=== PATIENT | male | born 1950 | race African-American/Black ===

== ENCOUNTER → 2019-04-08 | Outpatient (CLI) | payer MEDICARE, OTHER ==
[~2019-04-08] MED LIST: AMLO-147 PO; ASPI81TA52 PO; ATOR-2 PO; BUSP10TA2 PO; CLOP75TA27 PO; DOCU100T PO; HYDR-4011 PO; MAGN400T27 PO; MEGE40TA PO; POLY15DR25 BOTH EYES; TAMS-14 PO; ZOLP10TA5 PO
--- NOTE | 2019-04-15 16:57 | RADRPT ---
Vent Rate: 70 bpm RR Interval: 856 msec MT Interval: 130 msec QRS Duration: 82 msec QT Interval: 455 msec QTC Interval: 492 msec P-R-T [place]: 70 - 74 - 62 degrees Sinus rhythm...normal P axis, V-rate 50- 99 Electronically Signed By: Sam Pereira
== END | disposition home or self-care (01) ==
LOC: LAB 12:29
PROVIDERS: ATTEND Internal Medicine
DX: Z01.818 Encounter for other preprocedural examination (principal); I10 Essential (primary) hypertension; I65.21 Occlusion and stenosis of right carotid artery; I67.2 Cerebral atherosclerosis; I11.9 Hypertensive heart disease without heart failure
CPT/HCPCS: 71045; 81003; 85025; 85610; 85730; 93005

== ENCOUNTER 2019-04-15 07:25 | Day surgery (SDC) | payer MEDICARE, OTHER ==
--- NOTE | 2019-04-14 22:29 | PREOPHP ---
DATE OF ADMISSION: 04/15/2019 HISTORY OF PRESENT ILLNESS: This 69-year-old gentleman is admitted for elective cataract surgery of the right eye. The patient has had decreased vision in the right eye for an extended period of time without prior history of eye disease or injury. The patient's systemic history is positive for diabe jeremy mellitus, asthma, systemic hypertension and heart disease. CURRENT MEDICATIONS: 1. Amlodipine. 2. Aspirin (discontinued 1 week prior to surgery). 3. Atorvastatin. 4. Clopidogrel. 5. Tamsulosin. 6. [place]. 7. Zolpidem. 8. Docusate. 9. Artificial Tears. ALLERGIES: THERE ARE NO KNOWN ALLERGIES. PHYSICAL EXAMINATION: The visual acuity is finger counting in the right eye and 20/100 in the left e ye. Slit lamp examination reveals a mature cataract in the right eye and an advanced nuclear sclerot ic cataract, associated with a posterior subcapsular cataract in the left eye. Applanation tonometry is 19 mmHg. Examination of the retina in the right eye is grossly normal. Left eye appears to have a normal appearing optic disk, macula and blood vessels. DIAGNOSIS: Mature cataract, right eye. PLAN: Cataract extraction with lens implant, right eye. The risks and alternatives to the surgery h ave been discussed with the patient as well as the hope for improvement of visual acuity leading to g reater ability to perform activities of daily living. The patient understands this and agrees to pro ceed with surgery. Dictated By: RADHA LONG/LAWANDA Conf#: [id number] DID#: [id number]
[~2019-04-15] VITALS: Ht 188 cm; Wt 65.3 kg
[2019-04-15] VITALS (11 sets, daily range): BP systolic 112–137; BP diastolic 73–89; PULSE 58–84; RESP 13–18; Ht 188 cm; Wt 65.3 kg
[2019-04-15] MEDS ORDERED: DICLOFENAC 0.1% 2.5 ML OPH OPER SCH (08:30)
[2019-04-15] MEDS ORDERED: MOXIFLOXACIN 0.5% 3 ML OPH OPER SCH (08:30)
[2019-04-15] MEDS ORDERED: CYCLOPENTOLATE/PHENYLEPH 2 ML OPH OPER SCH ×2 (08:30)
[2019-04-15] MEDS ORDERED: TROPICAMIDE 1% 15 ML OPH OPER SCH (08:30)
[2019-04-15] MEDS ORDERED: AMLO-147 PO (08:47)
[2019-04-15] MEDS ORDERED: ATOR-2 PO (08:48)
[2019-04-15] MEDS ORDERED: ASPI81TA52 PO (08:48)
[2019-04-15] MEDS ORDERED: CLOP75TA27 PO (08:49)
[2019-04-15] MEDS ORDERED: MEGE40TA PO (08:54)
[2019-04-15] MEDS ORDERED: ZOLP10TA5 PO (08:54)
[2019-04-15] MEDS ORDERED: HYDR-4011 PO (08:55)
[2019-04-15] MEDS ORDERED: TAMS-14 PO (08:55)
[2019-04-15] MEDS ORDERED: BUSP10TA2 PO (08:56)
[2019-04-15] MEDS ORDERED: DOCU100T PO (08:58)
[2019-04-15] MEDS ORDERED: MAGN400T27 PO (08:58)
--- NOTE | 2019-04-15 08:58 | PREAC ---
Date/Time of Note Date/Time of Note DATE: 04/15/19 TIME: 08:56 Anesthesia Eval and Record Evaluation Time Pre-Procedure Interview DATE: 04/15/19 TIME: 08:56 Age 69 Sex male NPO: 8 hrs Preoperative diagnosis Right eye cataract Planned procedure Cataract extraction with IOL implant Past Medical History Past Medical History: Includes Cardio: HTN, Dyslipidemia, CAD, PTCA/Stent Surgery & Anesthesia Issues No known issue Meds Anticoagulation: No Beta Jon within 24 hr: No Reason Beta Jon not given: Pt. not on B-Jon Reported Medications Polyvinyl Alcohol (Tears Again) 15 Ml Drops, 1 DRP BOTH EYES DAILY, BOTTLE 04/15/19 Docusate Sodium* (Dok*) 100 Mg Tablet, 100 MG PO BID, #60 CAP 04/15/19 Magnesium Oxide* (Mag-Oxide*) 400 Mg Tablet, 400 MG PO DAILY, TAB 04/15/19 Buspirone Hcl* (Buspirone Hcl*) 10 Mg Tab, 5 MG PO QHS, TAB 04/15/19 Tamsulosin Hcl* (Flomax*) 0.4 Mg Cap.er.24h, 0.4 MG PO DAILY, CAP 04/15/19 Hydrocodone/Acetaminophen ([place] 5-325 Tablet) 1 Each Tablet, 1 EACH PO TID PRN for PAIN, TAB 04/15/19 Zolpidem Tartrate* (Zolpidem Tartrate*) 10 Mg Tablet, 10 MG PO QHS PRN for INSOMNIA, #30 TAB 04/15/19 Megestrol Acetate* (Megace*) 40 Mg Tab, 40 MG PO BID, TAB 04/15/19 Clopidogrel Bisulfate (Clopidogrel) 75 Mg Tablet, 75 MG PO DAILY, #30 TAB 04/15/19 Atorvastatin* (Atorvastatin*) 80 Mg Tablet, 80 MG PO QHS, #30 TAB 04/15/19 Aspirin (Low Dose Aspirin) 81 Mg Tablet.dr, 81 MG PO DAILY, #30 TAB 04/15/19 Amlodipine Besylate* (Amlodipine Besylate*) 10 Mg Tablet, 10 MG PO DAILY, #30 TAB 04/15/19 Current Medications Diclofenac Sodium (Voltaren 0.1%) 1 drop Q5 MIN X 3 OPER Last administered on 04/15/19at 08:35; Admin Dose 1 DROP; Start 04/15/19 at 08:30; Stop 04/15/19 at 18:00 Moxifloxacin HCl (Vigamox) 1 drop Q5 MIN X 3 OPER Last administered on 04/15/19at 08:35; Admin Dose 1 DROP; Start 04/15/19 at 08:30; Stop 04/15/19 at 16:00 Cyclopentolate/ Phenylephrine (Cyclomydril Oph 2 ml) 1 drop Q5 MIN X 3 OPER Las t administered on 04/15/19at 08:35; Admin Dose 1 DROP; Start 04/15/19 at 08:30; Stop 04/15/19 at 16:00 Tropicamide (Mydriacyl 1%) 1 drop Q5 MIN X3 OPER Last administered on 04/15/19at 08:35; Admin Dose 1 DROP; Start 04/15/19 at 08:30; Stop 04/15/19 at 16:00 Meds reviewed: Yes Allergies Coded Allergies: No Known Allergy (Unverified , 04/15/19) Allergies Reviewed: Yes Labs/Studies Labs Reviewed: Reviewed by anesthesiologist test: N/A Pre-procedure Exam Last vitals Vital Signs Date Temp Pulse Resp B/P (MAP) Pulse Ox O2 O2 Flow FiO2 Time Delivery Rate 04/15/19 98.6 84 16 136/75 96 Room Air 08:27 (95) Airway: Adequate mouth opening Mallampati: Mallampati I Teeth: Abnormal (No teeth) Lung: Normal Heart: Normal ASA Physical Status ASA physical status: 3 Emergency: None Planned Anesthetic General/MAC: MAC Planned Pain Management Parenteral pain med Pre-operative Attestations Prior to commencing anesthesia and surgery, the patient was re-evaluated, there was verification of: *The patient's identity *The results of appropriate recent lab work and preoperative vital signs *The above evaluation not changing prior to induction *Anesthetic plan, risk benefits, alternative and complications discussed with patient/family; questions answered; patient/family understands, accepts and wishes to proceed. MIKE GALLARDO MD Apr 15, 2019 08:58
[2019-04-15] MEDS ORDERED: POLY15DR25 BOTH EYES (09:00)
[2019-04-15] MEDS ORDERED: CARBACHOL 0.01% 1.5 ML OPH INJ ONE (09:15)
[2019-04-15] MEDS ORDERED: CEFAZOLIN 1 GM INJ ONE (09:15)
[2019-04-15] MEDS ORDERED: NA HYALURONATE/CHONDROITIN 0.5 ML SYG ONE (09:15)
[2019-04-15] MEDS ORDERED: DEXAMETHASONE 4 MG/ML 1 ML INJ ONE (09:15)
[2019-04-15] MEDS ORDERED: EPINEPHrine 1 MG INJ ONE (09:15)
[2019-04-15] MEDS ORDERED: TETRACAINE 0.5% 4 ML OPH ONE (09:15)
[2019-04-15] MEDS ORDERED: LIDOCAINE 4% (MPF) 5 ML INJ ONE (09:15)
[2019-04-15] MEDS ORDERED: GENTAMICIN 80 MG INJ ONE (09:15)
[2019-04-15] MEDS ORDERED: PROPOFOL 20 ML ONE (10:18)
[2019-04-15] MEDS ORDERED: METOCLOPRAMIDE 10 MG INJ IV PRN (10:30)
[2019-04-15] MEDS ORDERED: DIPHENHYDRAMINE 50 MG INJ IV PRN (10:30)
[2019-04-15] MEDS ORDERED: hydrALAzine 20 MG INJ IV PRN (10:30)
[2019-04-15] MEDS ORDERED: LABETALOL HCL 20MG INJ IV PRN (10:30)
[2019-04-15] MEDS ORDERED: OXYCODONE/ACETAMINOPHEN (5/325) TAB PO PRN ×2 (10:30)
[2019-04-15] MEDS ORDERED: MEPERIDINE 25 MG INJ IV PRN (10:30)
[2019-04-15] MEDS ORDERED: EPHEDrine 25 MG/5 ML SYG IV PRN (10:30)
[2019-04-15] MEDS ORDERED: MIDAZOLAM 1 MG/ML 2 ML INJ IV PRN (10:30)
[2019-04-15] MEDS ORDERED: FENTAnyl 50 MCG/ML VIAL IV PRN ×3 (10:30)
[2019-04-15] MEDS ORDERED: ONDANSETRON 4 MG INJ IV PRN (10:30)
--- NOTE | 2019-04-15 10:36 | SIPON ---
Date/Time of Note Date/Time of Note DATE: 04/15/19 TIME: 10:35 Operative Report Preoperative Diagnosis mature cataract od Postoperative Diagnosis same Operation/Procedure Performed cataract extraction with lens implant od Surgeon radha luna music library assistant none Anesthesia: MAC Estimated blood loss: none Transfusion Required none Specimen none Grafts/Implants posterior chamber lens implant Complications none RADHA LUNA MD Apr 15, 2019 10:36
[2019-04-15] MEDS ORDERED: LABETALOL HCL 20MG INJ ONE (10:51)
--- NOTE | 2019-04-15 11:25 | OPR ---
DATE OF OPERATION: 04/15/2019 PREOPERATIVE DIAGNOSIS: Mature cataract, right eye. POSTOPERATIVE DIAGNOSIS: Mature cataract, right eye. OPERATION PERFORMED: Cataract extraction with lens implant, right eye. SURGEON: Radha Luna M.D. ANESTHESIOLOGIST: Dr. Britt. ANESTHESIA: Local standby. PROCEDURE: The patient brought to the operating room and placed on the eye gurney and positioned ehsan ropriately. It was noted that the patient could not bring his head down into the horizontal position due to cervical neck problems. Therefore, it was decided to place the bed into Trendelenburg positi on with the head down in order to achieve close to a horizontal plane in which to have the operating field. Once this was done, the patient received local intravenous sedation and then local anesthesia was given, using lidocaine 4% injected with a curved needle that could be inserted under direct visu alization through the conjunctival fornix and rotated posteriorly to the posterior aspect of the glob e. 4 mL of local anesthetic were administered. The patient was then prepped and draped in the usual sterile manner and a speculum was inserted between the lids of the right eye. A wire lid speculum was inserted between the lids of the right eye. A Superblade was used to enter t he anterior chamber at the corneoscleral limbus at the 10:30 o'clock position. A separate incision w as made using a 3.0-mm keratome which entered the corneoscleral junction at the 12 o'clock position. Through this 3-mm opening, an irrigating cystotome was introduced into the anterior chamber. The ch celia was filled with Viscoat and an anterior capsulotomy was performed. Balanced salt solution was then used for hydrodissection of the lens. A phacoemulsification handpiece was then brought into the field and introduced into the anterior chamber. The lens nucleus was emulsified using a deep groove and cracking the nucleus into quadrants. Following this, each quadrant was aspirated and emulsified at the pupillary margin. After this was completed, the irrigation/aspiration handpiece was brought to the field, introduced in to the posterior chamber, and the lens cortical material was removed. When this was completed, addit ional Viscoat was injected into the anterior and posterior chambers. The 3-mm opening had its internal lips enlarged, and then the posterior chamber intraocular lens corey uring 21.0 diopters ([employer] Model LI61AO) was then injected into the posterior c hamber using the lens injector system. After the leading haptic was introduced into the capsular bag and the lens optic was present in the center of the eye, the injector was removed and the trailing h aptic was grasped with non-toothed forceps and introduced into the capsular fold superiorly. A [place] ey hook was then used to rotate the intraocular lens so that the lips were oriented in the horizontal meridian. One 10-0 nylon suture was placed across the wound. Prior to tying, the irrigation/aspiration handpiece was reintroduced into the anterior chamber to rem ove the Viscoat. Miochol was instilled to constrict the pupil, and then the 10-0 nylon suture was ti ed. The ends were cut short and then the knot was buried. Then, 0.5 mL of dexamethasone and 0.5 mL of Ancef were injected into the sub-Tenon space in the infer ior fornix. Ciloxan drops were then placed on the surface of the eye. The speculum was removed and a patch was applied. The patient then left the operating room in satisfactory condition. Dictated By: RADHA LONG/LAWANDA Conf#: [id number] DID#: [id number] CC: RADHA LUNA MD;*EndCC*
--- NOTE | 2019-04-15 11:27 | PAC ---
Date/Time of Note Date/Time of Note DATE: 04/15/19 TIME: 11:27 Post-Anesthesia Notes Post-Anesthesia Note Last documented vital signs Vital Signs Date Temp Pulse Resp B/P (MAP) Pulse Ox O2 O2 Flow FiO2 Time Delivery Rate 04/15/19 99.2 11:14 04/15/19 72 17 129/76 92 Room Air 11:13 (93) Activity: WNL Respiratory function: WNL Cardiovascular function: WNL Mental status: Baseline Pain reasonably controlled: Yes Hydration appropriate: Yes Nausea/Vomiting absent: Yes MIKE GALLARDO MD Apr 15, 2019 11:27
== END 2019-04-15 12:35 | disposition home or self-care (01) ==
LOC: SDS 07:25
PROVIDERS: ATTEND Ophthalmology
DX: H26.8 Other specified cataract (principal); I25.10 Atherosclerotic heart disease of native coronary artery without angina pectoris; I10 Essential (primary) hypertension; Z79.82 Long term (current) use of aspirin; I69.354 Hemiplegia and hemiparesis following cerebral infarction affecting left non-dominant side
CPT/HCPCS: 66984; J0171; J0690; J1100; J1580; V2632